=== PATIENT | female | born 1995 | race Caucasian/White ===

== ENCOUNTER 2022-01-26 09:17 | Emergency (ER) | payer BC, OTHER ==
[~2022-01-26] VITALS: Ht 160 cm; Wt 59.0 kg
[2022-01-26 09:39] VITALS: BP_SYST 143
--- NOTE | 2022-01-26 12:40 | NUR ---
Patient to ER hallway chair 1 for evaluation. Side rails up. Report received from Bella.
--- NOTE | 2022-01-26 12:50 | NUR ---
Assumed care of patient who came from home c/o pain 03/25 to right arm. Patient noticed pain two days ago. Patient has no past medical history besides an elective breast augmentation surgery x2 weeks ago. Patient is sitting in chair in hallway. No signs of acute distress, VS WNL.
--- NOTE | 2022-01-26 13:36 | NUR ---
MAGI Patterson at bedside examining patient.
--- NOTE | 2022-01-26 13:52 | NUR ---
Patient given written and verbal discharge instructions and verbalizes understanding. ER Dr. Yesenia ROE discussed with patient the results and treatment provided. Patient in stable condition. ID arm band removed. Patient educated on pain management and to follow up with PMD. Pain Scale 3/10. Opportunity for questions provided and answered. Medication side effect fact sheet provided.
== END 2022-01-26 12:40 | disposition home or self-care (01) ==
LOC: SED 09:17
DX: S46.311A Strain of muscle, fascia and tendon of triceps, right arm, initial encounter (principal); X50.0XXA Overexertion from strenuous movement or load, initial encounter; Y93.89 Activity, other specified; Y92.89 Other specified places as the place of occurrence of the external cause; Y99.8 Other external cause status
CPT/HCPCS: 99282